=== PATIENT | male | born 1980 | race Caucasian/White ===

== ENCOUNTER 2018-11-13 09:02 | Emergency (ER) | payer MEDICAID, OTHER ==
[~2018-11-13] VITALS: Ht 177.8 cm; Wt 70.3 kg
[2018-11-13] MEDS ORDERED: FINA1TAB PO (09:11)
--- NOTE | 2018-11-13 09:26 | NUR ---
JUSTIN MALONEY AT BEDSIDE FOR MSE.
[2018-11-13] MEDS ORDERED: SWABABLE VALVE TRANSFER SET EA MC ONE (09:43)
[2018-11-13] MEDS ORDERED: IOHEXOL 300MG/ML 100 ML INFUS..BTL ONE (09:43)
[2018-11-13] MEDS ORDERED: IV NORMAL SALINE 250 ML IV ONE (09:43)
[2018-11-13] MEDS: IV NORMAL SALINE 1000 ML BAG IV ONE (09:45)
[2018-11-13 09:47] LABS: BASOPHILS % (AUTO) 0.9 % (0.0-2.0); EOSINOPHILS # (AUTO) 0.1 K/uL (0.0-0.7); EOSINOPHILS % (AUTO) 2.6 % (0.0-7.0); HEMATOCRIT 43.9 % (36.7-47.1); HEMOGLOBIN 14.9 g/dL (12.5-16.3); LYMPHOCYTES % (AUTO) 25.9 % (20.5-51.5); MEAN CORPUSCULAR HEMOGLOBIN 32.3 uug (23.8-33.4); MEAN CORPUSCULAR HGB CONC 34 g/dL (32.5-36.3); MEAN CORPUSCULAR VOLUME 95.4 fL (73.0-96.2); MONOCYTES # (AUTO) 0.3 K/uL (2.0-10.0); MONOCYTES % (AUTO) 8.1 % (0.0-11.0); NEUTROPHILS # (AUTO) 2.4 K/uL (1.8-8.9); NEUTROPHILS % (AUTO) 62.5 % (38.5-71.5); PLATELET COUNT (AUTO) 191 K/uL (152-348); WHITE BLOOD COUNT (AUTO) 3.9 K/uL (3.6-10.2)
[2018-11-13 09:50] LABS: *BILIRUBIN,URIN NEGATIVE (NEGATIVE); *BLOOD, URINE 2+ (NEGATIVE); *CLARITY,URINE CLEAR (CLEAR); *COLOR,URINE YELLOW (YELLOW); *KETONES,URINE NEGATIVE (NEGATIVE); *UROBILINOGEN,URINE 0.2 E.U./dl (NORMAL); LEUKOCYTE ESTERASE ,URINE NEGATIVE (NEGATIVE); NITRITE, URINE NEGATIVE (NEGATIVE); UGLUCOSE NEGATIVE (NEGATIVE)
[2018-11-13 09:53] LABS: CREATININE 0.9 mg/dL (0.6-1.3); POTASSIUM 4.3 mmol/L (3.5-5.1)
[2018-11-13 09:59] LABS: MUCUS,URINE FEW /LPF (0-FEW); SQUAMOUS EPITHELIAL CELL,UR NONE SEEN /HPF (NONE SEEN)
[2018-11-13 09:59] LABS: BILIRUBIN,DIRECT 0.1 mg/dL (0.0-0.2); BILIRUBIN,TOTAL 0.4 mg/dL (0.2-1.0); TOTAL PROTEIN, SERUM 7.4 g/dL (6.4-8.2)
[2018-11-13 10:00] LABS: RBC,URINE 20-50 /HPF (0-3)
[2018-11-13 10:01] LABS: BACTERIA,URINE NONE SEEN /HPF (NONE SEEN); WBC,URINE 0-3 /HPF (0-3)
--- NOTE | 2018-11-13 10:06 | NUR ---
PT TAKEN TO RADIOLOGY FOR IMAGING.
--- NOTE | 2018-11-13 10:19 | NUR ---
PT BACK IN ER FROM RADIOLOGY.
[2018-11-13] MEDS: KETOROLAC TROMETHAMINE 30 MG INJ IVP ONE (10:31)
[2018-11-13] MEDS ORDERED: KETOROLAC TROMETHAMINE 30 MG INJ ONE (10:33)
--- NOTE | 2018-11-13 11:21 | NUR ---
Patient discharged to home in stable conditon. Written and verbal after care instructions given. Patient verbalizes understanding of instructions. ALL BELONGINGS W/ PT. PT SELF-AMBULATED W/O DIFFICULTY. 20G IV ACCESS IN LAC REMOVED PRIOR TO D/C - INNER CANNULA INTACT.
[2018-11-13 11:22] VITALS: BP 121/70
== END 2018-11-13 11:22 | disposition home or self-care (01) ==
LOC: ER 09:02
DX: N13.2 Hydronephrosis with renal and ureteral calculous obstruction (principal); Z79.899 Other long term (current) drug therapy
CPT/HCPCS: 36415; 83690; 85025; A4663; J1885; J7030; J7050; Q9967